=== PATIENT | female | born 1965 | race Caucasian/White ===

== ENCOUNTER 2016-12-18 14:16 | Emergency (ER) | payer MEDICAID ==
[2016-12-18 15:15] VITALS: BP 115/46
[2016-12-18] MEDS ORDERED: HYDROmorphone 2 MG/ML SDV IM ONE (15:39)
[2016-12-18] MEDS ORDERED: Ondansetron 4 MG Tab.DIS PO PRN (15:40)
[2016-12-18] MEDS ORDERED: Acetaminophen/HYDROcodone 325-5 MG Tab PO ONE (17:33)
--- NOTE | 2016-12-20 12:26 | CR ---
INDICATION: Severe left hip pain, no history of trauma. LEFT HIP: Frontal and lateral views of the left hip revealed only very minimal hypertrophic changes at the hip joint with the joint space well-maintained. Along the lateral aspect of the iliac bone, there is an appearance of some demineralization, which should be correlated clinically. An x-ray of the pelvis is recommended to compare the right iliac bone. Otherwise, no suspicious findings were noted, Minimal degenerative changes noted at the sacroiliac joint on the left. Report was given in person to Dr. Demarco Winters this morning, 12/20/2016. [facility]
--- NOTE | 2016-12-20 12:30 | CR ---
INDICATION: Left hip pain, no injury. LEFT KNEE: Three views of the left knee were obtained and revealed very minimal hypertrophic changes at the lateral intercondylar spine. Femorotibial and patellofemoral joint spaces appear to be fairly well maintained. There is question of a knee joint effusion, which should be correlated clinically. Also, demineralization may be present, raising question of osteoporosis. Report sent to Dr. Demarco Winters on 12/20/2016. [facility]
--- NOTE | 2016-12-23 13:49 | ER ---
DATE SEEN: 12/18/2016 TIME SEEN: The patient was seen at 1525 hours. CHIEF COMPLAINT: Low back pain. HISTORY OF PRESENT ILLNESS: The patient is an employee of a [employer] in [place]. PAST MEDICAL HISTORY: Significant for hypertension, obesity, and swelling in her ankles. She works at the [employer]. She is status post hysterectomy, diabetes. She is a 3, para 3. Not . Still smoking. Pain radiated from left lower back to her groin and down her leg. She denies lifting or carrying anything, but is having difficulty walking for the past 2 days. Left groin, left neck, left axilla discomfort. PHYSICAL EXAMINATION: HEENT: PERRLA intact. Pharynx normal. GENERAL: The patient is a very pleasant personality, is smiling. NECK: No bruits in the neck. No thyromegaly or mass in neck. No cervical adenopathy. LUNGS: Clear to auscultation without rales, rhonchi, or wheezes. HEART: S1, S2. No murmur. No irregular rate or rhythm. ABDOMEN: Soft. No guarding. No abdominal discomfort. EXTREMITIES: She has marked pain in left hip and reluctant to move it, internally and externally rotate. No sacral pain. She has moderate sacroiliac discomfort also on the left side. Range of movement of the right hip is decreased, but not abnormal and does not cause pain to end range of motion. No edema of lower extremities. Dorsalis pedis intact. Knee inspection is normal in appearance. She has no collateral ligament strain or pain. No joint line pain. Drawer sign absent. Zeke maneuver negative. Nataliya maneuver not performed because she has so much hip pain. DIAGNOSTIC STUDIES: X-ray reveals a large cyst at the distal 20% of the femur. This extends almost to the cortex of the articular surface of the femur. There are also horizontal, perhaps stress fracture lines that are evident proximal to this. There is a question of mild joint effusion. Patella normal in appearance. Knee is without otherwise abnormality. ASSESSMENT: Large joint cyst of left femur, etiology indeterminate. Most likely, this is causing her pain. She is at high risk for fracture of this and needs to not walk on this. I am 90% certain this was causing her hip pain. She needs an MRI to evaluate the characteristics of the cyst. Rule out to make sure it is not a sarcoma or a cancerous lesion. It looks like a benign lesion. However, is a risk of fracture and would require extensive intervention should fracture occur. If it is a benign cyst, may have to have it curetted out and replace with bone-forming beads. The patient to not walk and not go to work. She is to use hydrocodone for pain. Follow up with Dr. Winters after the MRI is completed. The MRI is scheduled for 1500 on Tuesday, December 22, 2016. /[id number] OPAL/MODL
== END 2016-12-18 17:45 | disposition home or self-care (01) ==
LOC: FB.ED 14:16
DX: M85.652 Other cyst of bone, left thigh (principal); M25.852 Other specified joint disorders, left hip; I10 Essential (primary) hypertension; E66.9 Obesity, unspecified; Z90.710 Acquired absence of both cervix and uterus
CPT/HCPCS: 73502; 73562; 96372; 99283; A9270; J1170